=== PATIENT | female | born 1945 | race Caucasian/White ===

== ENCOUNTER 2023-06-21 21:37 | Emergency (ER) | payer OTHER, SELFPAY ==
[2023-06-21 21:49] VITALS: BP 100/53
--- NOTE | 2023-06-21 22:01 | ED.GENMED ---
History of Present Illness
General
Chief Complaint: Eye Problems
Time Seen by Provider: 06/21/23 22:01
Travel History
Have you had any contact with someone who has COVID-19?: No
Do you have any symptoms of coronavirus? Fever > 100 degrees, chills, cough, shortness of breath, sore throat, loss of taste or smell, muscle aches, or headache?: No
History of Present Illness
History of Present Illness:
HPI:
EXAM:
TIME OF INITIAL ENCOUNTER:
NUMBER AND COMPLEXITY OF PROBLEMS ADDRESSED AT THE ENCOUNTER
� Chronic conditions affecting care: Dementia, frequent UTI, hypothyroidism, breast cancer�has had left-sided mastectomy
� Acute Exacerbation and/or Progression of Chronic Illness:
� Differential Diagnosis includes:
AMOUNT AND/OR COMPLEXITY OF DATA TO BE REVIEWED AND ANALYZED
� I performed an independent evaluation of and my interpretation is:
EKG:
CT:
X-rays:
Laboratory Studies:
Other:
� Review of other/old records:
� Clinical information was obtained by an independent historian:
� Prescriptions/Medications Considered but not given:
� Further testing considered but not performed:
RISK OF COMPLICATIONS AND/OR MORBIDITY OR MORTALITY OF PATIENT MANAGEMENT
� Social determinants of health affecting care:
� Discussion with other providers:
� Escalation of care including admission/observation vs risk of discharge considered:
Past History
Past History
ED Past Medical History: Cancer (breast cancer), HTN, Hypercholesterolemia and Hypothyroidism
ED Past Surgical History: Gynecological
Social History
Tobacco: Non-smoker
Alcohol: Occasional
Drug: None
Personal:
Living: with family
Employment: Employed
Family History
Family History: Other (non contributory)
Course
Vital Signs
Initial and Last Documented VS:
Initial Vital Signs
Temp Pulse Resp BP Pulse Ox
98.7 F 94 17 100/53 95
06/21/23 21:49 06/21/23 21:49 06/21/23 21:49 06/21/23 21:49 06/21/23 21:49
Last Documented Vital Signs
Temp Pulse Resp BP Pulse Ox
98.7 F 94 17 100/53 95
06/21/23 21:49 06/21/23 21:49 06/21/23 21:49 06/21/23 21:49 06/21/23 21:49
ED Attending Note
-
Portions of this chart may have been created with voice recognition software.� Occasional wrong word or��sound alike� substitutions may have occurred due to the inherent limitations of voice recognition software.
Discharge Plan
Departure
Prescriptions:
No Action
levothyroxine 125 MCG tablet
125 mcg PO DAILY
magnesium citrate Solution
150 ml PO ONCE Qty: 296 0RF
sennosides-docusate sodium [Senna-S] 8.6-50 mg tablet
1 tab-cap PO HS Qty: 20 0RF
Interventions
Interventions:
*Risk Screen - Suicide Last Done: 06/21/23 21:49
*General Assessment Last Done: 06/21/23 21:49
*Neglect/Abuse Screening Last Done: 06/21/23 21:49
*ED COVID-19 Vaccine History Last Done: 06/21/23 21:49
Discharge Date and Time
Print Language: BELIZEAN
[2023-06-21] MEDS: OCUFLOX 1 DROP OPHTH (22:44)
--- NOTE | 2023-06-21 22:45 | EDRN ---
Per ARTEMIO Palacio verbal order, the pt is to get Ofloxacin Opthalmic Solution CORRECTION 0.3% 1 drop in Left eye every 5 minutes for 30 minutes.
--- NOTE | 2023-06-21 23:17 | EDRN ---
the pts family members present at bedside state they administered the remaining eye drops to the patients left eye as ordered; one drop every 30 minutes.
--- NOTE | 2023-06-21 23:30 | ED.GENMED ---
History of Present Illness
General
Chief Complaint: Eye Problems
Source: spouse and family
Exam Limitations: none
Time Seen by Provider: 06/21/23 22:01
Nursing documentation reviewed up to this point in time: agreed with
Travel History
Have you had any contact with someone who has COVID-19?: No
Do you have any symptoms of coronavirus? Fever > 100 degrees, chills, cough, shortness of breath, sore throat, loss of taste or smell, muscle aches, or headache?: No
History of Present Illness
History of Present Illness:
According to spouse, family has been dealing with conjunctivitis for the past month. States he had it and then his . She was seen by a provider in [facility] and placed on antibiotic drops. He felt that she was getting better and then symptoms
returned. She was recently seen by her PCP and placed on tobramycing for conjunctivitis. Family states she is complaining of worsening vision and familiy feels eye looks worse. Brought to ED by family for eval. Family reports history of mild
dementia
Past History
Past History
ED Past Medical History: Cancer (breast cancer), HTN, Hypercholesterolemia and Hypothyroidism
ED Past Surgical History: Gynecological
Social History
Tobacco: Non-smoker
Alcohol: Occasional
Drug: None
Personal:
Living: with family
Employment: Employed
Family History
Family History: Other (non contributory)
Review of Systems
Review of Systems
Allergies reviewed?: Yes
All Other Systems: ROS reviewed and negative except as documented in HPI and ROS
Constitutional: Reports no symptoms
EENT: Reports other (left eye red, decreased vision, cloudy cornea, yellow drainage)
Respiratory: Reports no symptoms
Cardiac: Reports no symptoms
ABD/GI: Reports no symptoms
Musculoskeletal: Reports no symptoms
Skin: Reports no symptoms
Neurological: Reports no symptoms
Psychiatric: Reports no symptoms
Phy Exam
General Physical Exam
General Presentation: well appearing and no apparent distress
General age: appears stated age
General Skin: warm and dry
General Habitus: normal
Eye Exam
Eye Exam: other (Left conjunctival injection, yellow crusting and discharge. 10 soft contact lenses removed from left eye. Lids everted, swept with qtip, no further contact lenses located. Cornea hazy. Entire cornea picks of fluorescein stain. )
Able to obtain acuity?: No (unable to complete due to corneal injury)
Eye Exam General: PERRL: bilateral and EOM intact: bilateral
Conjunctival Changes: left: purulent discharge, local crusting and foreign body (10 soft contact lenses removed)
Cornea Exam: ulceration: Left
Type of Exam: slit lamp, simple and fluorescein
Musculoskeletal Exam
Musculoskeletal Exam: full ROM and neuro vasc intact
Skin Exam
Skin Exam: normal color, warm/dry and no rash
Psychiatric Exam
Psychiatric Exam: normal mood/affect
Course
Orders/Labs/Results
Orders:
Orders
06/21/23 22:35
Ofloxacin [Ocuflox] See Dose Instructions OPHTH NOW STA
06/21/23 22:41
Wound Culture [Wound/Abscess/Other Culture] Urgent
CYDNEY Source: Ulcer
Specimen Description:
Date Specimen was Collected: 06/21/23
Time Specimen was Collected: 22:38
Vital Signs
Initial and Last Documented VS:
Initial Vital Signs
Temp Pulse Resp BP Pulse Ox
98.7 F 94 17 100/53 95
06/21/23 21:49 06/21/23 21:49 06/21/23 21:49 06/21/23 21:49 06/21/23 21:49
Last Documented Vital Signs
Temp Pulse Resp BP Pulse Ox
98.7 F 94 17 100/53 95
06/21/23 21:49 06/21/23 21:49 06/21/23 21:49 06/21/23 21:49 06/21/23 21:49
*Critical Care Note
Total Time (30-74mins, 75-104mins- exclusive of procedures): Not Applicable
Update Note
Update Note:
10 soft contact lenses removed from left eye. 1 soft contact lens removed from right eye. Patient and family instructed to no longer have contact lenses available to her. Case discussed with Dr. Lee. Patient started on ocuflox 1 drop to
left eye every 5 minutes for 30 minutes. She was discharged home and will continue to apply drop every 30 minutes while awake. Family will call Dr. Lee in AM for appointment time. Patient will be seen in office by Dr. Lee in AM.
ED Attending Note
-
Portions of this chart may have been created with voice recognition software.� Occasional wrong word or��sound alike� substitutions may have occurred due to the inherent limitations of voice recognition software.
Discharge Plan
Departure
Patient Disposition: Home (Routine Discharge)
Patient with high blood pressure during this ER visit?: No
Condition: Fair
Covid-19: Not Applicable
Discharge Problem:
Corneal ulcer
Instructions: How to Use Eye Drops, Corneal Ulcer (DC)
Prescriptions:
New
ofloxacin [Ocuflox] 0.3 % drops
1 drp ophthalmic (eye) DIRECTED Qty: 5 0RF
Rx Instructions:
Apply 1 drop to your left eye every 30 minutes while awake
No Action
levothyroxine 125 MCG tablet
125 mcg PO DAILY
magnesium citrate Solution
150 ml PO ONCE Qty: 296 0RF
sennosides-docusate sodium [Senna-S] 8.6-50 mg tablet
1 tab-cap PO HS Qty: 20 0RF
Referrals:
Lana Lee MD [Active] - Tomorrow (Please call the office at 9AM for your appointment time. [phone])
Jasmin Wells CRNP [Family Provider] -
Activity Restrictions/Additional Instructions:
Please call the office of Dr. Lee at 9AM for your appointment time. [phone]. It is extremely important that you keep this appointment. DO NOT PLACE ANY MORE CONTACT LENSES IN YOUR EYES. Use the ocuflox eye drops: 1 drop to your left
eye every 30 minutes while awake.
Interventions
Interventions:
*Risk Screen - Suicide Last Done: 06/21/23 21:49
*General Assessment Last Done: 06/21/23 21:49
*Neglect/Abuse Screening Last Done: 06/21/23 21:49
*ED COVID-19 Vaccine History Last Done: 06/21/23 21:49
*Nursing Disposition Last Done: 06/21/23 23:18
Discharge Date and Time
Discharge Date/Time: 06/21/23 23:19
Print Language: PALAUAN
== END 2023-06-21 23:19 | disposition home or self-care (01) ==
LOC: EMR 21:37
PROVIDERS: EMERGENCY PHYSICIAN Emergency Medicine; FAMILY PHYSICIAN Nurse Practitioner Family
DX: H16.002 Unspecified corneal ulcer, left eye (principal); F03.A0 Unspecified dementia, mild, without behavioral disturbance, psychotic disturbance, mood disturbance, and anxiety
CPT/HCPCS: 99283; 87070; 87077; 87147; 87205

== ENCOUNTER → 2023-07-20 08:03 | Outpatient (REF) | payer OTHER, SELFPAY | LOC: RAD 08:03 | PROVIDERS: ATTENDING PHYSICIAN Nurse Practitioner Family | DX: R91.1 Solitary pulmonary nodule (principal) | CPT/HCPCS: 71250 ==

== ENCOUNTER → 2024-01-08 13:14 | Outpatient (REF) | payer OTHER, SELFPAY | LOC: WDC 13:14 | PROVIDERS: ATTENDING PHYSICIAN Nurse Practitioner Family | DX: Z12.31 Encounter for screening mammogram for malignant neoplasm of breast (principal) | CPT/HCPCS: 77063; 77067 ==

== ENCOUNTER → 2024-04-14 08:42 | Outpatient (REF) | payer OTHER, SELFPAY | LOC: WDC 08:42 | PROVIDERS: ATTENDING PHYSICIAN Nurse Practitioner Family | DX: R92.8 Other abnormal and inconclusive findings on diagnostic imaging of breast (principal) | CPT/HCPCS: 76642 ==

== ENCOUNTER 2024-07-03 15:11 | Inpatient (IN) | payer OTHER, MEDICARE, SELFPAY ==
[2024-07-03] VITALS (9 sets, daily range): BP systolic 111–139; BP diastolic 56–87; BMI 22.9
--- NOTE | 2024-07-03 11:18 | ED.GENMED ---
History of Present Illness
General
Chief Complaint: Abdominal Symptoms
Source: patient and spouse
Exam Limitations: dementia
Time Seen by Provider: 07/03/24 11:03
Nursing documentation reviewed up to this point in time: agreed with
History of Present Illness
History of Present Illness:
Patient is a 79-year-old female with history of Alzheimer's, hypothyroid presenting to the emergency department for evaluation of lower abdominal pain and diarrhea. Symptoms started 5 days ago while on vacation in the [place]. She
reports lower abdominal pain and frequent bouts of nonbloody diarrhea. She was seen in the emergency department in the [facility] where she was admitted overnight for IV fluids, IV antibiotics. She was discharged on ciprofloxacin which she has been
taking for the past 5 days. She apparently had a low-grade fever while in the emergency department at that time.
Patient denies any chest pain, shortness of breath, dysuria/urinary frequency, back pain, or fever currently.
Given persistent diarrhea�they were unable to make a flight home and ended up charging a flight home on Sunday. She was seen by her primary care provider today who referred her to the emergency department for evaluation.
Patient does have history of somewhat chronic diarrhea although this is different. No known sick contacts.
Past History
Past History
ED Past Medical History: Cancer (breast cancer), HTN, Hypercholesterolemia and Hypothyroidism
ED Past Surgical History: Gynecological
Social History
Tobacco: Non-smoker
Alcohol: Occasional
Drug: None
Personal:
Living: with family
Employment: Employed
Family History
Family History: Other (non contributory)
Review of Systems
Review of Systems
Allergies reviewed?: Yes
All Other Systems: ROS reviewed and negative except as documented in HPI and ROS
Phy Exam
Physical Exam
Physical Exam:
Vitals: Patient's vital signs are stable. Afebrile
General: Patient is well appearing, no acute distress
Skin: Warm and dry, no rashes or lesions
Head: Normocephalic, atraumatic
Eyes: Sclera nonicteric. EOMs intact. No nystagmus.
Throat: Dry mucous membranes. Protecting airway
Neck: Normal ROM, no cervical spine tenderness, no meningismus
Cardiac: Regular rate and rhythm, no murmurs.
Pulm: Normal respiratory effort, no wheezes, rales, rhonchi heard on exam.
Abdomen: Abdomen soft. Tenderness in lower abdomen without rebound tenderness or guarding. No CVA tenderness.
Rectal: No stool in rectal vault. No fecal impaction.
Extremities: No evidence of cyanosis or edema. DP pulses palpable bilaterally
Neuro: Alert. No focal deficits.
Psychiatric: Normal affect.
Course
Orders/Labs/Results
Orders:
Orders
07/03/24 Breakfast
Clear Liquid
At Your Request: Full Participation
Does patient need a safe tray?: No
07/03/24 11:03
Complete Blood Count/With Diff Urgent
Comprehensive Metabolic Panel Urgent
Lipase Urgent
Magnesium Urgent
Comment: ADD ON
07/03/24 11:16
Add On- LAB Urgent
Tests Added?: magnesium
Urinalysis Reflex To Culture Urgent
STOOL [C difficile Antigen & Toxins] Urgent
CYDNEY Source: Feces/Stool
Specimen Description:
Stool Culture Urgent
CYDNEY Source: Feces/Stool
Specimen Description:
0.9% Sodium Chloride 1000 ml [Nss] 1,000 ml IV BOLUS
07/03/24 11:17
CT Abd/pelvis W Iv Cont Urgent
Comment:
Reason For Exam: lower abdominal pain, +diarrhea
07/03/24 11:24
Lactic Acid Q4H
Comment: CANCEL 2nd LACTIC ACID IF 1st LACTIC ACID IS LESS THAN 2
07/03/24 13:51
Piperacillin/Tazo 3.375 Gram [Zosyn] 3.375 gram in 50 ml IV NOW
07/03/24 14:54
Admit/Transfer Patient As Directed
Co-Sign Provider:
Level of Care: Inpatient admission
Assign to:: Medical/Surgical
Physician / Group: hermelindo
Diagnosis: stercoral colitis
Reason for Hospitalization: stercoral colitis
Expected length of stay greater than two midnights?: Yes
ELOS- Estimated Length of Stay in days: 3
I certify the patient meets the requirements for IP care: Yes
Code Status As Directed
Resuscitation Status: Full Code
PRN Pain Medication Management As Directed
May give lesser potent ordered pain med per pt: Yes
preference::
Protocol:: Medication orders for pain may be administered in a
manner that supports deferring to patient preference
when the pt is:
- Requesting an ordered lesser potent pain medication.
Least to most potent pain medications are defined
as: acetaminophen < NSAID < tramadol < opioids
(morphine, oxycodone, hydromorphone).
- Requesting a lesser dose of the same medication IF
ORDERED.
- Requesting a less intrusive route of administration
if both routes are prescribed by the provider (PO <
IV).
07/03/24 17:39
Acetaminophen [Tylenol] 650 mg PO Q4HPRN PRN
07/03/24 17:39
Activity As Directed
Activity Level: As Tolerated
Vital Signs As Directed
Frequency: Per unit guidelines
DX Deep Vein Thrombosis Video Routine
07/03/24 18:00
Enoxaparin Sodium [Lovenox] 40 mg SC QPM
07/03/24 20:00
Piperacillin/Tazo 3.375 Gram [Zosyn] 3.375 gram in 50 ml IV Q6H
07/03/24 22:00
Donepezil HCl [Aricept] 10 mg PO HS
07/04/24 06:00
Levothyroxine [Synthroid] 50 mcg PO DAILY @ 0600
07/04/24 08:00
Atorvastatin [Lipitor] 10 mg PO DAILY
Cholecalciferol (Vitamin D3) [VITAMIN D3 (cholecalciferol)] 25 mcg PO DAILY
Lisinopril [Zestril] 10 mg PO DAILY
Abnormal Lab Results
07/03/24
11:03
WBC 11.2 H 10^3/uL
(4.8-10.8)
RBC 3.98 L 10^6/uL
(4.20-5.40)
Hct 34.8 L %
(37.0-47.0)
MCH 31.4 H pg
(27.0-31.0)
Abs Immat Gran (auto) 0.2 H 10^3/uL
(0-0.05)
Absolute Neuts (auto) 8.5 H 10^3/uL
(1.4-6.5)
Absolute Monos (auto) 1.0 H 10^3/uL
(0.1-0.6)
Immature Gran % 1.4 H %
(0-0.5)
Neutrophils % 76.2 H %
(42.2-75.2)
Lymphocytes % 12.5 L %
(20.5-51.1)
Sodium 134 L mmol/L
(135-145)
Total Protein 5.6 L g/dl
(6.3-8.2)
Albumin 2.8 L g/dl
(3.5-5.0)
07/03/24 11:03
07/03/24 11:03
Vital Signs
Initial and Last Documented VS:
Initial Vital Signs
Temp Pulse Resp BP Pulse Ox
98.1 F 77 16 117/62 100
07/03/24 10:20 07/03/24 10:20 07/03/24 10:20 07/03/24 10:20 07/03/24 10:20
Last Documented Vital Signs
Temp Pulse Resp BP Pulse Ox
98.3 F 68 16 139/72 98
07/03/24 17:54 07/03/24 17:54 07/03/24 17:54 07/03/24 17:54 07/03/24 17:54
MDM/Problems Addressed
Differential Diagnosis Includes:
Not limited to: Viral gastroenteritis, bacterial colitis, bowel obstruction, diverticulitis, etc.
MDM/Problems Addressed:
79 year old female w/ hx as documented presenting with 5 days of nonbloody diarrhea, lower abdominal pain, and fevers. No vomiting or dysuria. Vitals stable. Patient afebrile in ED. Physical exam as above. Differential broad although concern for
intra-abdominal infectious process given persistent pain and fevers at home. Will send labs, check urine and stool studies. Will obtain CT abdomen/pelvis. Will give IVF, patient declines analgesia at this time.
Update: Labs reviewed. Mild leukocytosis. Chemistry unremarkable. CT shows significant stool burden and findings consistent w/ stercoral colitis. Rectal exam performed without any fecal impaction or stool in rectal vault. Will initiate IV abx given
fever hx and concern for infectious component. Patient will require admission to hospital for further management. Patient accepted to hospitalist service in stable condition.
Chronic conditions affecting care:
Alzheimer's
Acute Exacerbation and/or Progression of Chronic Illness:
N/A
*Radiology
Radiology exam reviewed: radiology read reviewed
*Pulse Oximetry
Patient hypoxic: no
*EKG
Interpreted by ED Provider?: NA
*Custom Tailor Apprentice Interpretation
Rate: Custom Tailor Apprentice- N/A
*Critical Care Note
Total Time (30-74mins, 75-104mins- exclusive of procedures): Not Applicable
Patient Management
Discussion with other providers: Hospitalist
Escalation/DeEscalation of care consider admission/obs:
Admit for IV abx and further management
ED Attending Note
-
Portions of this chart may have been created with voice recognition software.� Occasional wrong word or��sound alike� substitutions may have occurred due to the inherent limitations of voice recognition software.
Discharge Plan
Departure
Patient Disposition: Admit
Date of Disposition: 07/03/24
Time of Disposition: 13:54
Presentation/result/management discussed w/ accepting MD/DO: Hospitalist
Discharge Problem:
Stercoral colitis
Interventions
Interventions:
*Risk Screen - Suicide Last Done: 07/03/24 10:20
*General Assessment Last Done: 07/03/24 10:20
*Neglect/Abuse Screening Last Done: 07/03/24 11:10
*ED COVID-19 Vaccine History Last Done: 07/03/24 10:20
*Nursing Disposition Last Done: 07/03/24 17:49
XA-Clvxpa-Cgvaeupmnu Assessment Last Done: 07/03/24 11:10
Discharge Date and Time
Discharge Date/Time: 07/03/24 17:49
[2024-07-03 11:22] LABS: % Basophils 0.5 % (0-2); % Eosinophils 0.5 % (0-6); % Immature Granulocytes 1.4 % (0-0.5); % Lymphocytes 12.5 % (20.5-51.1); % Monocytes 8.9 % (1.7-9.3); % Neutrophils 76.2 % (42.2-75.2); Absolute Basophils 0.1 10^3/uL (0-0.2); Absolute Eosinophils 0.1 10^3/uL (0-0.7); Absolute Immature Granulocytes 0.2 10^3/uL (0-0.05); Absolute Lymphocytes 1.4 10^3/uL (1.2-3.4); Absolute Neutrophils 8.5 10^3/uL (1.4-6.5); Hematocrit 34.8 % (37.0-47.0); Hemoglobin 12.5 g/dL (12.0-16.0); Mean Corp Hgb Conc. 35.9 g/dL (33.0-37.0); Mean Corpuscular Hgb 31.4 pg (27.0-31.0); Mean Corpuscular Volume 87.4 fL (81.0-99.0); Mean Platelet Volume 10.1 fL (7.4-10.4); Nucleated Red Blood Cells % 0 %; Platelet Count 292 10^3/uL (130-400); Red Blood Cell Count 3.98 10^6/uL (4.20-5.40); Red Cell Dist. Width 12.1 % (11.5-14.5); White Blood Cell Count 11.2 10^3/uL (4.8-10.8)
[2024-07-03] MEDS: NSS 1000 IV ×2 (11:25→20:50)
[2024-07-03 11:27] LABS: ALT (SGPT) 24 U/L (0-35); AST (SGOT) 30 U/L (14-36); Albumin 2.8 g/dl (3.5-5.0); Alkaline Phosphatase 120 U/L (38-126); Blood Urea Nitrogen 10 mg/dl (7-17); Calcium 8.8 mg/dl (8.4-10.2); Carbon Dioxide 23 mmol/L (22-30); Chloride 105 mmol/L (98-107); Glucose 94 mg/dl (70-99); Lipase 92 U/L (23-300); Sodium 134 mmol/L (135-145); Total Bilirubin 0.6 mg/dl (0.2-1.3); Total Protein 5.6 g/dl (6.3-8.2); eGFR > 60.00
[2024-07-03 11:43] LABS: Magnesium 1.8 mg/dl (1.6-2.3)
[2024-07-03] MEDS: ZOSYN 50 IV ×2 (14:26→20:50)
--- NOTE | 2024-07-03 14:39 | HPS.HSE ---
Family Physician
-
Family Physician: SENG Acevedo
Chief Complaint
-
diarrhea
History of Present Illness
79-year-old female with history of Alzheimer's, hypothyroid HLD, left brest cancer, HTN presenting to the emergency department for evaluation of lower abdominal pain and diarrhea for past five days. she was started on Cipro on Sunday. she took
total five days of Cipro. Symptoms started 5 days ago while on vacation in the [facility]. She reports lower abdominal pain and frequent bouts of nonbloody diarrhea. she has low grade temp of 99.4 yesterday morning for which she was given
Tylenol. denied nausea and vomiting. Patient denied any headache, dizzy or syncopal episode. Patient denied any runny nose, congestion, cough. Patient denied any dysuria materia
CT with stercoral colitis. Patient received a dose of Zosyn, normal saline. UA, stool C. difficile and stool cultures ordered in ER.
Admitted for further management
Medical History
Past Medical History
Past Medical History: Reports Other
Additional Past Medical History:
Hypothyroidism, hyperlipidemia, corneal, ulcer, breast cancer, pulmonary nodules, thymus disease, hypertension history of alcohol abuse
Past Surgical History: Reports Other
Additional Past Surgical History:
Left breast lumpectomy
Social History
Tobacco: Non-smoker
Alcohol: None
Drug: None
Personal:
Living: With Family
Family History
Family History: Not pertinent
Allergies / Home Medications
Allergies reflects when Allergies were last updated in [employer].
Home Medications with original date entered in [employer]
Allergy/Medication List:
Allergies
Allergy/AdvReac Type Severity Reaction Status Date / Time
Sulfa (Sulfonamide Allergy Nausea Verified 07/03/24 10:22
Antibiotics)
Home Medications
atorvastatin 10 mg tablet (Lipitor) 10 mg PO DAILY 07/03/24
cholecalciferol (vitamin D3) 25 mcg (1,000 unit) tablet (Vitamin D3) 25 mcg PO DAILY 07/03/24
donepezil 10 mg tablet 10 mg PO HS 07/03/24
levothyroxine 100 mcg tablet (Synthroid) 50 mcg PO DAILY 07/03/24
lisinopril 10 mg tablet 10 mg PO DAILY 07/03/24
loperamide 2 mg tablet 2 mg PO DAILYPRN PRN diarrhea 07/03/24
psyllium 1 packet PO DAILYPRN PRN diarrhea 07/03/24
Review of Systems
-
Constitutional: Reports No Symptoms
EENT: Reports No Symptoms
Respiratory: Reports No Symptoms
Cardiac: Reports No Symptoms
Abdomen/GI: Reports Abdominal Pain and Diarrhea
: Reports No Symptoms
Musculoskeletal: Reports No Symptoms
Skin: Reports No Symptoms
Neurological: Reports No Symptoms
Endocrine: Reports No Symptoms
Hematologic/Lymphatic: Reports No Symptoms
Psych: Reports No Symptoms
Physical Exam
Vital Signs
Vital Signs
Temp Pulse Resp BP Pulse Ox
98.1 F 77 16 123/68 100
07/03/24 10:20 07/03/24 10:20 07/03/24 10:20 07/03/24 11:00 07/03/24 11:00
Physical Exam
General: Well Developed, Well Nourished and No Apparent Distress
HEENT: NormoCephalic, Moist mucous membranes and Atraumatic
Respiratory: Clear
Cardiac: S1/S2 and Regular Rhythm; No Murmur or Rub
GI: Soft, Non Tender, Non Distended and Normal Bowel Sounds; No Organomegaly
Rectal: Deferred by Provider
Musculoskeletal: No Clubbing, No Cyanosis and No Edema
Skin: No Rash
Neuro: AO x 3 and Nonfocal/grossly intact
Psych: Calm
Laboratory Results
-
07/03/24 11:03
07/03/24 11:03
Laboratory Results
Lactic Acid Cancelled 07/03/24 15:30
Total Bilirubin 0.6 mg/dl (0.2-1.3) 07/03/24 11:03
AST 30 U/L (14-36) 07/03/24 11:03
ALT 24 U/L (0-35) 07/03/24 11:03
Alkaline Phosphatase 120 U/L (38-126) 07/03/24 11:03
Lipase 92 U/L (23-300) 07/03/24 11:03
Data Reviewed
-
CT Scan: Report Reviewed by me
Lab Data: Labs Reviewed by me
Impression/Plan
-
# Stercoral colitis
- WBCs 11.0
- CT with large volume stool filling and distending the rectum as well as sigmoid stool noted. Thickening of the wall of the sigmoid colon and rectum highly suspicious for COLITIS, MOST LIKELY ACUTE STERCORAL COLITIS. No intestinal obstruction or
free air.Moderate size hiatal hernia is again seen.Small fat only containing umbilical hernia.
- Zosyn continued
-Clear liquid diet
-Tylenol as needed for fever or pain
-disimpacted in ER without success
-miralax bid
-Dulcolax prn
-hold Imodium and Metamucil
# Hyperlipidemia
- Statin continued
# History for Alzheimer's disease
- Aricept continue
# Hypothyroidism
- Levothyroxine continue
# Essential hypertension
- Lisinopril continue with hold parameters
# DVT prophylaxis
- Lovenox subcu
# CODE STATUS
- Full code
--- NOTE | 2024-07-03 16:49 | W.PN.UPDATE ---
Update Note
Progress Note Update
This is an addendum to H&P written by Wendy Parry on 07/03/2024.� Patient seen and examined independently with CRUISE DIRECTOR.
79-year-old female past medical history of chronic stool incontinence/diarrhea, Alzheimer's disease, hypothyroidism, hyperlipidemia, left breast cancer, hypertension, presenting with lower abdominal pain and diarrhea for past 5 days while on
vacation in [facility].� She went to the emergency room there and treated with IV antibiotics transition to oral.
Continues to have diarrhea.��
Vital signs normal.
Labs show leukocytosis.� CT abdomen pelvis shows large volume stool filling and distending the rectum as well as sigmoid stool.� Highly suspicious for acute colitis likely acute stercoral colitis.
Patient was attempted to be disimpacted in ER without success.
Seems that patient has overflow diarrhea with underlying stercoral colitis possibly exacerbated by loperamide recently.
Check stool studies and C. difficile.� Start MiraLAX twice daily.� As needed Dulcolax.� Hold loperamide and hold Metamucil.� Continue Zosyn.� Clear liquid diet.
[2024-07-03] MEDS: LOVENOX SC (18:09)
[2024-07-03] MEDS: SENOKOT PO ×2 (20:53→21:06)
[2024-07-03] MEDS: ARICEPT PO ×2 (20:53→21:06)
[2024-07-03] MEDS: MIRALAX PO (21:06)
--- NOTE | 2024-07-03 21:28 | PTCARENOTE ---
Patient refusing oral medication. RN provided patient education. Patient is still refusing oral medications stating 'I don`t want to take them, I just want to sleep'. TELEVISION SPECIALIST made aware.
[2024-07-03] MEDS: SENOKOT 17.2 MG PO (21:49)
[2024-07-03] MEDS: MIRALAX 17 GRAMS PO (21:49)
[2024-07-03] MEDS: ARICEPT 10 MG PO (21:50)
--- NOTE | 2024-07-03 21:55 | PTCARENOTE ---
Patient agreeable to taking PO medications. Son at bedside encouraging patient to takes medications as well. See MAR for administration. SCHOOL JANITOR updated.
[2024-07-04] MEDS: ZOSYN 50 IV ×4 (01:55→19:31)
[2024-07-04] MEDS: SYNTHROID 50 MCG PO (05:23)
[2024-07-04 07:30] VITALS: BP 121/64
--- NOTE | 2024-07-04 07:45 | W.PN.HOSP.TC ---
Addendum entered and electronically signed by Heladio Linda MD 07/04/24 16:18:
Seen and examined by me independently in collaboration with the medical planner.
Lab data and imaging data reviewed.
Addendum as below :
Difficult historian as I am not sure if she has underlying cognitive impairment and she does seems to have a history of it. She is on donepezil.
Story seems to be that she was on a trip to the [facility] and was having diarrheal issue for which she took ciprofloxacin and Imodium.
She presents with diarrhea . no nausea vomiting. CT of the abdomen pelvis shows right-sided colon stools and also stools in the rectum and sigmoid. Unclear if this is overflow diarrhea from constipation with Imodium use. So far stool cultures
including norovirus, C. difficile are negative. Salmonella, Shigella, Campylobacter and Shiga toxin are pending.
There is a stercoral colitis picture on the CT abdomen pelvis and associated white count-continue with antibiotics for now. Abdomen is soft and nontender.
Treat symptomatically for now and follow clinical progress.
Total time spent on today's encounter was 52 minutes which included time spent in counseling the patient/family regarding diagnosis and treatment plan as listed above, goals of care, and symptom management. Case was discussed with nursing staff,
specialists, and care coordinators/case management. All labs and imaging personally reviewed by me. Remainder the time spent in detailed review of previous records, lab data, imaging, and other medical provider documentation.
Original Note:
Today's Communication/Plan
-
ADAT
pending stool cultures
c/w Abx
Assessment / Plan
Assessment / Plan
79 year old female who presented to the ED with 5 days of abd pain & non resolving diarrhea despite x5d on Cipro
#Stercoral colitis
- leukocytosis without fever, tachycardia, lactate wnl, not hypotensive -- not septic
- CT highly suspicious for acute stercoral colitis
- attempted disimpacted in ER without success
- c/w Zosyn for now pending culture results
- tolerating CLD, advance to regular
- Dulcolax prn, miralax BID
#Diarrhea
- s/p IVF bolus, c/w IVF
- stool cultures sent; Norovirus negative. Cdiff neg.
- holding loperamide/metamucil
#Hyperlipidemia - c/w home statin
#History for Alzheimer's disease - c/w Aricept
#Hypothyroidism - c/w levothyroxine
#Essential hypertension - c/w lisinopril, hold for SBP <100
#Small Fat containing umbilical hernia
#Modrate Size Hiatal hernia
DVT PPx: Lovenox SC
Code Status: Full Code
Anticipated Discharge: Within 24 hours
Subjective/Interval History
-
Date of Service: July 04, 2024
Feels better than yesterday, no acute complaints, resting comfortably. Had 3 bowel movements overnight. Per nursing and observation by me with nursing staff the patient has a tendency to become very agitated and verbally aggressive when refusing
treatment/care; in this case, trying to change her gown, and reportedly refusing meds overnight.
Objective Data
-
Vital Signs:
Vital Signs
Temp Pulse Resp BP Pulse Ox
98.3 F 68 16 139/72 98
07/03/24 17:54 07/03/24 17:54 07/03/24 17:54 07/03/24 17:54 07/03/24 17:54
Review of Systems
-
Unable to obtain full review of systems at this time due to: Dementia
History Source: Patient
All other systems: Reviewed and negative
Constitutional: Reports No Symptoms
EENT: Reports No Symptoms Reported
Respiratory: Reports No Symptoms
Cardiac: Reports No Symptoms
Abdomen/GI: Reports No Symptoms
Physical Exam
-
General: Well Developed, Well Nourished, No Apparent Distress and Comfortable
HEENT: Normocephalic, Atraumatic and Moist Mucous Membranes
Respiratory: Clear to Auscultation; Negative Wheezes, Rales or Rhonchi
Cardiac: Regular Rhythm and S1/S2; Negative Murmur or Rub
GI: Soft, Nondistended and Tender (LLQ); Negative Normal Bowel Sounds (hypoactive bowel sounds)
Musculoskeletal: No Clubbing, No Cyanosis and No Edema
Skin: Warm and Dry
Neuro: Awake and Alert
[2024-07-04 07:57] LABS: Hepatitis C Antibody Negative (Negative)
[2024-07-04] MEDS: VITAMIN D3 (cholecalciferol) 25 MCG PO (08:53)
[2024-07-04] MEDS: MIRALAX 17 GRAMS PO ×2 (08:53→19:31)
[2024-07-04] MEDS: ZESTRIL 10 MG PO (08:53)
[2024-07-04] MEDS: LIPITOR 10 MG PO (08:53)
--- NOTE | 2024-07-04 11:20 | CM ---
case resource manager reviewed patient's chart and met with patient and patient [facility], patient is independent with adl's and ambulation, no dme, patient drives, home with spouse when stable.
PCP: Jasmin Wells
[facility] in [place]
Plan; Home with spouse when stable.
[2024-07-04 13:41] LABS: Urine Albumin 1+ (Neg - Trace); Urine Bilirubin Negative (Negative); Urine Character Clear (Clear); Urine Color Yellow; Urine Glucose Negative (Negative); Urine Ketone 3+ (Negative); Urine Leukocyte 1+ (Negative); Urine Nitrite Negative (Negative); Urine Occult Blood 1+ (Negative); Urine Urobilinogen Negative (Neg - 1+)
[2024-07-04 14:08] LABS: Urine Squamous Cell >30 /LPF (Few)
[2024-07-04 14:09] LABS: Urine Red Blood Cell 0-2 /HPF (0-2)
[2024-07-04 14:10] LABS: Urine Bacteria Few (Negative)
[2024-07-04 15:15] VITALS: BP 118/85
[2024-07-04 16:33] VITALS: BP 118/85
[2024-07-04] MEDS: LOVENOX 40 MG SC (17:21)
[2024-07-04] MEDS: ARICEPT 10 MG PO (19:31)
[2024-07-04] MEDS: SENOKOT 17.2 MG PO (19:31)
[2024-07-04] MEDS: NSS 1000 IV (19:31)
[2024-07-04 23:55] VITALS: BP 160/91
[2024-07-05] MEDS: ZOSYN 50 IV ×3 (01:16→13:55)
[2024-07-05] MEDS: SYNTHROID 50 MCG PO (06:13)
[2024-07-05 07:00] VITALS: BP 136/75
[2024-07-05 07:48] LABS: % Basophils 0.6 % (0-2); % Eosinophils 1.5 % (0-6); % Immature Granulocytes 1.4 % (0-0.5); % Lymphocytes 14.8 % (20.5-51.1); % Monocytes 13.9 % (1.7-9.3); % Neutrophils 67.8 % (42.2-75.2); Absolute Basophils 0.1 10^3/uL (0-0.2); Absolute Eosinophils 0.2 10^3/uL (0-0.7); Absolute Immature Granulocytes 0.1 10^3/uL (0-0.05); Absolute Lymphocytes 1.4 10^3/uL (1.2-3.4); Absolute Monocytes 1.4 10^3/uL (0.1-0.6); Absolute Neutrophils 6.6 10^3/uL (1.4-6.5); Hematocrit 30.9 % (37.0-47.0); Hemoglobin 11.2 g/dL (12.0-16.0); Mean Corp Hgb Conc. 36.2 g/dL (33.0-37.0); Mean Corpuscular Hgb 30.8 pg (27.0-31.0); Mean Corpuscular Volume 84.9 fL (81.0-99.0); Mean Platelet Volume 9.6 fL (7.4-10.4); Nucleated Red Blood Cells % 0 %; Platelet Count 327 10^3/uL (130-400); Red Blood Cell Count 3.64 10^6/uL (4.20-5.40); Red Cell Dist. Width 12.2 % (11.5-14.5); White Blood Cell Count 9.7 10^3/uL (4.8-10.8)
[2024-07-05 08:15] LABS: Blood Urea Nitrogen 8 mg/dl (7-17); Calcium 7.9 mg/dl (8.4-10.2); Carbon Dioxide 19 mmol/L (22-30); Chloride 109 mmol/L (98-107); Estimated Creatinine Clearance 81 ml/min; Glucose 77 mg/dl (70-99); Potassium 3.6 mmol/L (3.5-5.1); Sodium 135 mmol/L (135-145); eGFR > 60.00
[2024-07-05] MEDS: ZESTRIL 10 MG PO (08:51)
[2024-07-05] MEDS: MIRALAX 17 GRAMS PO (08:51)
[2024-07-05] MEDS: LIPITOR 10 MG PO (08:52)
[2024-07-05] MEDS: VITAMIN D3 (cholecalciferol) 25 MCG PO (08:52)
[2024-07-05] MEDS: NSS 1000 IV (11:36)
--- NOTE | 2024-07-05 13:25 | W.PN.HOSP.TC ---
Addendum entered and electronically signed by Heladio Linda MD 07/05/24 15:54:
Seen and examined by me independently in collaboration with the certified medical biller.
Lab data and imaging data reviewed.
Addendum as below :
Interval history from daughter at bedside and her also arrived to add to the story.
Patient apparently in 2022 had a issue with diarrhea and incontinence of stool. She apparently had a GI workup and then had an episode of fecal impaction after which she was seen by colorectal surgery. In the last 7 8 months she continued to have
incontinence of stool which the family was attributing to dementia. She uses diapers.
Primary was managing with Imodium and Metamucil.
She was on a vacation where an she was having more than usual diarrhea in the took her to the hospital in the [place] and stayed overnight for hydration. She in fact had a charted flight to come back to [place] because of significant diarrhea and
could not use civilian plane.
Since she came back she was having abdominal pain as well and poor appetite and was continuing to have diarrhea. They were concerned about a overflow diarrhea.
Her abdominal imaging does show right-sided colon stools and as well as rectum and sigmoid significant amount of stool with bowel wall thickening. Apparently she had a fecal impaction in the ER which could not be disimpacted. Today rectal exam
shows rectum without any impaction.
Stool culture for norovirus and C. difficile negative and the rest of the cultures pending.
She was put on antibiotics for possible stercoral coral colitis and laxative regimen with MiraLAX. She is having loose stools currently.
It is interesting that the patient can tell when she has to urinate. She not able to communicate her need of defecation. Unclear if this is a chronic diarrhea issue and she is not able to be continent because of frequent diarrhea or she has real
stool incontinence for other reasons.
Apparently she had a colonoscopy couple of years ago but not sure if she had any colonic biopsies or any evaluation for chronic diarrhea.
She would benefit a GI eval and also family requesting a GI input regarding her ongoing diarrhea/current incontinence of stool and needing Imodium for now fecal impaction/constipation secondary to Imodium use.
Consult GI.
Original Note:
Today's Communication/Plan
-
c/w IV Abx
pending stool cultures
GI consult
possible d/c today with OP follow up
Assessment / Plan
Assessment / Plan
79 year old female who presented to the ED with 5 days of abd pain & non resolving diarrhea despite x5d on Cipro
#Stercoral colitis
- leukocytosis without fever, tachycardia, lactate wnl, not hypotensive -- not septic
- CT highly suspicious for acute stercoral colitis
- attempted disimpacted in ER without success
- stool culture results still pending
- diet advanced to regular, however not eating much
- Dulcolax prn, miralax BID
- GI consult; appreciate recs
#Diarrhea/Fecal incontinence
- s/p IVF bolus, c/w IVF
- stool cultures sent; Norovirus negative. Cdiff neg.
- holding loperamide/metamucil
- uncertain history of fecal incontinence and constipation for which she was put on both metamucil AND imodium? Per family it seems as if her Alzheimer's was presumed to be the cause for this, however will await GI input for final decisions.
#Hyperlipidemia - c/w home statin
#History for Alzheimer's disease - c/w Aricept
#Hypothyroidism - c/w levothyroxine
#Essential hypertension - c/w lisinopril, hold for SBP <100
#Small Fat containing umbilical hernia
#Modrate Size Hiatal hernia
DVT PPx: Lovenox SC
Code Status: Full Code
Anticipated Discharge: Within 24 hours
Subjective/Interval History
-
Date of Service: July 05, 2024
Objective Data
-
Labs:
Laboratory Results
07/05/24
07:01
WBC 9.7
Hgb 11.2 L
Hct 30.9 L
Plt Count 327
Sodium 135
Potassium 3.6
Chloride 109 H
Carbon Dioxide 19 L
BUN 8
Creatinine 0.6
Glucose 77
Calcium 7.9 L
Vital Signs:
Vital Signs
Temp Pulse Resp BP Pulse Ox
98.2 F 65 20 136/75 99
07/05/24 07:00 07/05/24 08:51 07/05/24 07:00 07/05/24 08:51 07/05/24 07:00
I&O
07/04/24 07/05/24 07/06/24
06:59 06:59 06:59
Intake Total 1420 / 1420 100 / 100
Balance 1420 / 1420 100 / 100
[2024-07-05 15:00] VITALS: BP 143/82
[2024-07-05 17:12] VITALS: BP 135/81
--- NOTE | 2024-07-06 15:49 | W.DCSUMMARY ---
Discharge Summary
Discharge Data
Date of Admission: 07/03/24
Date of Discharge: 07/05/24
Total time spent discharging patient (in min): >30m
-
Pending Results: No
Hospital Course
Discharging Physician : Dr. Alvin Romero, Dr. Heladio Linda
Disposition : Home
Primary care physician : Jasmin Wells
Principal Discharge diagnosis : Stercoral Colitis
Chronic Discharge diagnosis : Alzheimer's Dementia, Hyperlipidemia, Hypothyroidism, Essential hypertension
Hospital Course :
79 year old female who presented to the ED with 5 days of abd pain & non resolving diarrhea despite x5d on Cipro
#Stercoral colitis
[place] to be due to continued Imodium use with concurrent stool bulking agent
- leukocytosis without fever, tachycardia, lactate wnl, not hypotensive -- not septic
- CT highly suspicious for acute stercoral colitis
- attempted disimpacted in ER without success
- stool culture results negative
- diet advanced to regular and was tolerated, however she was not eating much -- c/w IVF
- Dulcolax prn, miralax BID
- given IV Zosyn while admitted, sent home on PO Augmentin
- GI/PCP follow up outpatient
#Diarrhea/Fecal incontinence
- On admission she was given an IVF bolus and maintained on IVF, especially considering her lack of PO fluid intake
- stool cultures sent; negative for norovirus. Stool Cx negative
- Loperamide and Metamucil were held
- uncertain history of fecal incontinence and constipation for which she was put on both metamucil AND imodium. Per family it seems as if her Alzheimer's was presumed to be the cause for her incontinence
- BLADE showed decreased rectal tone w/o fecal impaction following multiple liquid bowel movements
- GI consulted to evaluate, however patient's family made the decision to follow up as outpatient for which information was provided
- Loperamide and metamucil were held; miralax was continued; GI follow up encouraged.
#Hyperlipidemia - she was continued on home statin dose
#Alzheimer's Disease/Dementia - she was continued on Aricept. There were significant behavioral issues, especially during the night time, with nursing staff regarding medication refusal and cooperation when attempting to clean her up after
incontinent bowel movements.
#Hypothyroidism - she was continued on home dose levothyroxine
#Essential hypertension - she was continued on lisinopril without episodes of hyper/hypotension.
#Small Fat containing umbilical hernia
#Moderate Size Hiatal hernia
Important imaging findings :
CT Abd/pelvis W Iv Cont:
Large volume stool filling and distending the rectum as well as sigmoid stool noted. Thickening of the wall of the sigmoid colon and rectum highly suspicious for COLITIS, MOST LIKELY ACUTE STERCORAL COLITIS. No intestinal obstruction or free air.
Moderate size hiatal hernia is again seen.
Small fat only containing umbilical hernia.
Procedure findings :
None.
Discharge Plan
-
Patient Disposition: Home (Routine Discharge)
Discharge Diagnosis/Procedures: Stercoral Colitis, Fecal Incontinence
Condition: Good
Diet: As tolerated
Activity: As tolerated
Driving Restrictions: As prior to admission
Referrals:
Jessie Webster MD [Active] - in one to two weeks
Jasmin Wells CRNP [Family Provider] -
Additional Discharge Medication Instructions: Take Augmentin (Amoxicillin-pot clavulanate) for four more days
CONTINUE Miralax
HOLD Imodium until seen by PCP or GI doctor
Prescriptions:
New
amoxicillin-pot clavulanate 875-125 mg tablet
1 tab PO BID 4 Days Qty: 8 0RF
Continued
atorvastatin [Lipitor] 10 mg Tablet
10 mg PO DAILY
donepezil 10 mg Tablet
10 mg PO HS
levothyroxine [Synthroid] 100 mcg Tablet
50 mcg PO DAILY
lisinopril 10 mg Tablet
10 mg PO DAILY
cholecalciferol (vitamin D3) [Vitamin D3] 25 mcg (1,000 unit) Tablet
25 mcg PO DAILY
Held
psyllium Packet
1 packet PO DAILYPRN PRN (Reason: diarrhea)
Hold Instructions: Seen by PCP
loperamide 2 mg Tablet
2 mg PO DAILYPRN PRN (Reason: diarrhea)
Hold Instructions: HOLD until seen by PCP or GI
Discharge Orders:
Discharge Patient (As Directed); Ordered 07/05/24
Ordered By: Alvin Romero
Discharge Date and Time
Discharge Date/Time: 07/05/24 18:22
Print Language: MONGOLIAN
== END 2024-07-05 18:22 | disposition home or self-care (01) | DRG 392 ==
LOC: 4 WEST ACU 15:11
PROVIDERS: Physician Assistant; ADMITTING PHYSICIAN Hospitalist; ATTENDING PHYSICIAN Internal Medicine; EMERGENCY PHYSICIAN Emergency Medicine; FAMILY PHYSICIAN Nurse Practitioner Family
DX: K52.89 Other specified noninfective gastroenteritis and colitis (principal); G30.9 Alzheimer's disease, unspecified; F02.80 Dementia in other diseases classified elsewhere, unspecified severity, without behavioral disturbance, psychotic disturbance, mood disturbance, and anxiety; E78.00 Pure hypercholesterolemia, unspecified; E03.9 Hypothyroidism, unspecified; I10 Essential (primary) hypertension; K42.9 Umbilical hernia without obstruction or gangrene; K44.9 Diaphragmatic hernia without obstruction or gangrene; Z79.890 Hormone replacement therapy; D72.829 Elevated white blood cell count, unspecified; Z85.3 Personal history of malignant neoplasm of breast
CPT/HCPCS: 74177; 80048; 80053; 81003; 81015; 83605; 83690; 83735; 85025; 86803; 87045; 87046; 87086; 87324; 87427; 87449; 87798; 96361; 96365; 99285; Q9967

== ENCOUNTER → 2024-07-18 08:21 | Outpatient (REF) | payer OTHER, SELFPAY | LOC: HWRAD 08:21 | PROVIDERS: ATTENDING PHYSICIAN Internal Medicine Gastroenterology; FAMILY PHYSICIAN Nurse Practitioner Family | DX: R91.8 Other nonspecific abnormal finding of lung field (principal); K59.00 Constipation, unspecified | CPT/HCPCS: 71250; 74018 ==

== ENCOUNTER → 2024-08-15 08:28 | Outpatient (REF) | payer OTHER, SELFPAY | LOC: RAD 08:28 | PROVIDERS: ATTENDING PHYSICIAN Internal Medicine Gastroenterology; FAMILY PHYSICIAN Nurse Practitioner Family | DX: R19.7 Diarrhea, unspecified (principal) | CPT/HCPCS: 74018 ==

== ENCOUNTER → 2025-01-19 09:11 | Outpatient (REF) | payer OTHER, SELFPAY | LOC: HWRAD 09:11 | PROVIDERS: ATTENDING PHYSICIAN Nurse Practitioner Family | DX: R91.8 Other nonspecific abnormal finding of lung field (principal) | CPT/HCPCS: 71250 ==

== ENCOUNTER → 2025-03-03 09:21 | Outpatient (REF) | payer OTHER, SELFPAY | LOC: HWRAD 09:21 | PROVIDERS: ATTENDING PHYSICIAN Nurse Practitioner Family | DX: Z12.31 Encounter for screening mammogram for malignant neoplasm of breast (principal); Z78.0 Asymptomatic menopausal state | CPT/HCPCS: 77063; 77067; 77080 ==